=== PATIENT | male | born 1950 | race Caucasian/White ===

== ENCOUNTER 2017-08-11 05:53 | Emergency (ER) | payer OTHER ==
[~2017-08-11] VITALS: Ht 180.3 cm; Wt 73.9 kg
--- NOTE | ~2017-08-11 | EKG ---
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1950 Requested By: Becky Elliott Order Number: [id number] MD: Aidan Staley Measurements Intervals [place] Rate: 94 P: ND: QRS: -28 QRSD: 100 T: 46 QT: 386 QTc: 483 Interpretive Statements Atrial fibrillation RSR' in V1 or V2, probably normal variant Borderline ST depression, anterolateral leads Compared to ECG 03/30/2010 07:21:34 Sinus bradycardia no longer present PVCs no longer present Electronically Signed On 08-12-2017 9:17:37 CDT by Aidan Staley [email or web address] <ELECTRONICALLY SIGNED> By: Aidan Staley MD, [facility] 08/12/17 0917 [id number] Aidan Staley MD, [facility] /EPI
[~2017-08-11 05:53] MED LIST: ASPIRIN325 PO; PRINIVIL5 MG PO; [UNRECOGNIZED DRUG - OTHER]
[2017-08-11 07:07] LABS: BASOPHILS 1.1 % (0.0-2.0); EOSINOPHILS 4.8 % (0.0-3.0); HEMATOCRIT 45.4 % (42.0-52.0); HEMOGLOBIN 15.5 gm/dL (14.0-18.0); LYMPHOCYTES 39.8 % (24.0-44.0); MCH 33.5 pg (26.0-34.0); MCHC 34.2 g/dL (28.0-37.0); MCV 98.1 fL (80.0-100.0); MONOCYTES 11.6 % (1.0-8.0); PLATELET COUNT 279 thou/uL (150-400); POLYS 42.7 % (36.0-66.0); RBC 4.62 mil/uL (4.50-6.00); RDW 13.3 % (10.5-14.5); WBC 6.9 thou/uL (4.0-11.0)
[2017-08-11 07:14] LABS: ANION GAP 7 mmol/L (7-16); BUN 15 mg/dL (7-18); CALCIUM 9.5 mg/dL (8.5-10.1); CHLORIDE 105 mmol/L (98-107); CO2 26 mmol/L (21-32); GLUCOSE 103 mg/dL (74-106); POTASSIUM 3.9 mmol/L (3.5-5.1); SODIUM 138 mmol/L (136-145)
[2017-08-11 07:22] LABS: TROPONIN-I < 0.04 ng/mL (<0.06)
[2017-08-11 10:53] VITALS: BP 123/72
== END 2017-08-11 10:56 | disposition short-term general hospital (02) ==
LOC: ER 05:53
PROVIDERS: Emergency Medicine
DX: I48.91 Unspecified atrial fibrillation (principal)

== ENCOUNTER 2019-05-19 16:49 | Emergency (ER) | payer OTHER ==
[~2019-05-19] VITALS: Ht 180.3 cm; Wt 72.6 kg
--- NOTE | ~2019-05-19 | EKG ---
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
[~2019-05-19 16:49] MED LIST changes: +ASPIR 8181 MG PO; +METOPROLOL SUCC50 MG PO; +TAMBOCOR 100 M100 M1 PO
[2019-05-19] MEDS ORDERED: ZANAFLEX4 MG PO (18:28)
[2019-05-19 18:32] VITALS: BP 141/79
== END 2019-05-19 18:44 | disposition home or self-care (01) ==
LOC: ER 16:49
DX: S16.1XXA Strain of muscle, fascia and tendon at neck level, initial encounter (principal); I48.91 Unspecified atrial fibrillation; G47.30 Sleep apnea, unspecified; Z90.49 Acquired absence of other specified parts of digestive tract; V49.3XXA Car occupant (driver) (passenger) injured in unspecified nontraffic accident, initial encounter; Y93.89 Activity, other specified; Y92.89 Other specified places as the place of occurrence of the external cause; Y99.8 Other external cause status